=== PATIENT | female | born 1995 | race African-American/Black ===

== ENCOUNTER 2021-12-22 05:02 | Emergency (ER) | payer OTHER ==
[2021-12-22] MEDS ORDERED: Ketorolac Tromethamine 30 MG/ML VIAL ONE (05:21)
[2021-12-22] MEDS ORDERED: Ondansetron PF 4 MG/2 ML Vial ONE (05:21)
[2021-12-22] MEDS ORDERED: Morphine 4 MG/ML VIAL ONE (06:01)
[2021-12-22] MEDS ORDERED: Cyclobenzaprine 10 MG TAB ONE (06:13)
[2021-12-22] MEDS ORDERED: Acetaminophen 500 MG TAB ONE (06:13)
== END 2021-12-22 06:55 | disposition home or self-care (01) ==
LOC: CSHERS 05:02
DX: S16.1XXA Strain of muscle, fascia and tendon at neck level, initial encounter (principal); S00.83XA Contusion of other part of head, initial encounter; V43.52XA Car driver injured in collision with other type car in traffic accident, initial encounter
CPT/HCPCS: 70450; J1885; J2270; J2405